=== PATIENT | female | born 1940 | race Caucasian/White ===

== ENCOUNTER 2020-09-24 12:52 | Outpatient (CLI) | payer OTHER, SELFPAY | END 2020-09-24 12:53 | disposition home or self-care (01) | LOC: ANHAUDIO 12:54 | PROVIDERS: PCP Internal Medicine; Visit Provider Internal Medicine | DX: H91.93 Unspecified hearing loss, bilateral (principal) | CPT/HCPCS: 92557; 92567 ==

== ENCOUNTER 2022-01-31 11:00 | Outpatient (RCR) | payer OTHER, SELFPAY | END 2022-01-31 23:59 | disposition home or self-care (01) | LOC: ANHAUDIO 11:00 | PROVIDERS: PCP Internal Medicine; Visit Provider Internal Medicine | DX: Z46.1 Encounter for fitting and adjustment of hearing aid (principal) | CPT/HCPCS: 92592; 92593 ==

== ENCOUNTER 2023-06-08 08:57 | Outpatient (CLI) | payer OTHER, SELFPAY | END 2023-06-08 08:58 | disposition home or self-care (01) | LOC: ANHAUDIO 08:58 | PROVIDERS: PCP Internal Medicine; Visit Provider Internal Medicine | DX: H91.90 Unspecified hearing loss, unspecified ear (principal) | CPT/HCPCS: 99199 ==

== ENCOUNTER 2023-07-20 07:52 | Outpatient (CLI) | payer OTHER, SELFPAY | END 2023-07-20 07:53 | disposition home or self-care (01) | PROVIDERS: PCP Internal Medicine; Visit Provider Internal Medicine | DX: H90.3 Sensorineural hearing loss, bilateral (principal); Z01.10 Encounter for examination of ears and hearing without abnormal findings | CPT/HCPCS: 92557; 92567 ==